=== PATIENT | female | born 1965 | race Caucasian/White ===

== ENCOUNTER → 2019-03-08 07:56 | Outpatient (CLI) | payer BC ==
[~2019-03-08 07:56] MED LIST: BAYER CHEWABLE81 MG PO; MOBIC7.5 MG PO; NEURONTIN 300300 MG PO; PLAVIX75 MG PO; PRAVACHOL20 MG PO; ULTRAM50 MG PO
--- NOTE | 2019-03-12 11:41 | ST ---
PATIENT:ERICH GUTIERREZ MEDICAL RECORD: [id number] SEX: F LOCATION:[facility] ORDER #: ADMISSION DATE: 03/08/19 AGE OF PATIENT: 53 REFERRING PHYSICIAN: INTERPRETING PHYSICIAN: TAM GARCIA MD DATE OF SERVICE: 03/08/2019 PROCEDURE: Nuclear stress test. INDICATION: Angina, shortness of breath. The patient was exercised on standard Geoff protocol for 7-1/2 minutes achieving 85% max target heart rate response with 33 mCi of sestamibi injected at peak stress, 11 mCi used previously for rest images. FINDINGS: Gated SPECT reveals preserved ejection fraction at 65% with decreased thickening and brightening throughout the inferior segments. SPECT imaging: Cardiolite was used as myocardial perfusion agent. There is fixed perfusion defect inferiorly and apically compatible with previous inferoapical myocardial infarction; however, there is reversibility anteriorly. This includes the basal, mid, apical and anterior segments. The degree of reversibility is mild. The amount of myocardium involved between the 2 defects is large. OVERALL IMPRESSION: This is an intermediate risk nuclear stress test, fixed perfusion defect inferiorly and apically, reversible ischemia anteriorly suggestive of multivessel coronary artery disease. TRANSINT:[id number] Voice Confirmation ID: [id number] DOCUMENT ID: [id number] TAM GARCIA MD at 1141 CC: BOY MORALES MD [id number] DICTATION DATE: 03/11/19 1154 DARK ROOM ATTENDANT: 03/12/19 0031 DEP CLI 03/08/19 [facility] [address] [place] [address]
[2019-03-26 09:28] VITALS: BMI 26.2
== END | disposition home or self-care (01) ==
LOC: D.HCCARDIO 07:56
PROVIDERS: ATTEND Internal Medicine Interventional Cardiology
DX: R07.9 Chest pain, unspecified (principal)

== ENCOUNTER 2019-03-26 08:33 | Outpatient (CLI) | payer MEDICAID ==
[~2019-03-26] VITALS: Ht 172.7 cm; Wt 78.2 kg
--- NOTE | ~2019-03-26 | HEMODYNAMI ---
PATIENT:ERICH GUTIERREZ MEDICAL RECORD: [id number] : 61 LOCATION:[facility] ADMISSION DATE: 03/26/19 Generatedon:03/26/201910:46 Patient name: ERICH GUTIERREZ Patient #: [id number] SSN: [id number] : 1965 Date of study: 03/26/2019 Page: Of Hemodynamic Procedure Report Patient Data Patient Demographics Procedure consent was obtained First Name: ERICH Gender: Female Last Name: BRENDA : 1965 Patient #: [id number] Age: 53 year(s) Race: SSN: [id number] Additional ID: [id number] Contact details [address]: [address] [place] [address] State: [place] City: [place] Zip code: [address] Past Medical History Performed procedures and imaging results Date Procedure Procedure Results Comments 03/08/2019 Stress testing Positive->Intermediate with SPECT MPI risk Allergies: No known allergies Admission Admission Data Admission Date: 03/26/2019 Admission Time: 8:33 Arrival Date: 03/26/2019 Arrival Time: 0:00 Insurance Payor: Private health insurance [facility] #: [id number] Height (in.): 69 BSA: 1.97 (m2) Height (cm.): 175.26 BMI: 26.29 (kg/m2) Weight (lbs.): 178 Weight (kg.): 80.74 Lab Results Lab Result Date: 03/26/2019 Lab Result Time: 0:00 Biochemistry Name Units Result Min Max BUN mg/dl 12 --(-*--)-- 7 18 Creatinine mg/dl 0.7 --(*---)-- 0.6 1.3 eGFR ml/min 90 --(*---)-- 90 120 NONAFRICAN CBC Name Units Result Min Max Hematocrit % 41.9 -*(----)-- 42 54 Hemoglobin g/dl 13.7 --(*---)-- 13.5 17.5 Procedure Procedure Types Cath Procedure Diagnostic Procedure [facility] w/Coronaries Sedation Charges Moderate Sedation up to 15 minutes PCI Procedure Coronary Stent Coronary Stent Initial Procedure Description Procedure Date Procedure Date: 03/26/2019 Procedure Start Time: 10:24 Procedure End Time: 10:39 Procedure Staff Name Function Juan Jose Judge MD Performing Physician Geeta Cruz RT Monitor Kendy Robb RT Monitor Todd Escalante RN Nurse Consuelo Liang RT Scrub Josh Rhodes RT Scrub Procedure Data Cath Procedure Fluoroscopy Diagnostic fluoroscopy Total fluoroscopy Time: 3.4 time: 3.4 min min Diagnostic fluoroscopy Total fluoroscopy dose: 551 dose: 551 mGy mGy Contrast Material Contrast Material Type Amount (ml) Isovue 300 106 Entry Location Entry Primary Successful Side Size Upsize Upsize Entry Closure Monroy ccessful Closure Location (Fr) 1 (Fr) 2 (Fr) Remarks Device Remarks Radial Right 6 Fr Mechanical artery Short Compression Estimated blood loss: 10 ml Diagnostic catheters Device Type Used For End Catheter Placement DIAGNOSTIC [place] 110cm 5 Procedure Fr catheter ([id number]) Procedure Complications No complications Procedure Medications Medication Administration Route Dosage 0.9% NaCl I.V. 100 ml/hr Oxygen etCO2 Nasal cannula 2 l/min Heparin Flush Bag added to field 2 bags (1000units/500ml NS) Lidocaine 2% added to field 20 Radial Cocktail added to field 1 syringe (Verapamil 2mg/Nitro 400mcg/Heparin 1500units) Versed I.V. 2 mg Fentanyl I.V. 100 mcg Radial Cocktail I.A. 1 syringe (Verapamil 2mg/Nitro 400mcg/Heparin 1500units) Heparin Bolus I.V. 4000 units Integrilin (Bolus I.V. 6.8 ml 2mg/ml) Integrilin (Bolus wasted 3.2 ml 2mg/ml) Fentanyl I.V. 50 mcg Plavix P.O. 600 mg Fentanyl I.V. 50 mcg Hemodynamics Rest BSA: 1.97 (m2) HGB: 13.7 (g/dl) O2 Consumption: Estimated: 187.48 (ml/min) O2 Co nsumption indexed: Estimated:95.17 (ml/min/m) Heart Rate: 67 (bpm) Snapshots Pre Cath Intra NCS Post Cath Vital Signs Time Heart Resp SPO2 etCO2 NIBP Rhythm Pain Sedation Rate (ipm) (%) (mmHg) (mmHg) Status Level (bpm) 10:03:16 67 19 98 42 128/75(91) NSR 0 (11) 10(A) , No pain 10:07:28 64 19 97 41.2 122/75(95) NSR 0 (11) 10(A) , No pain 10:11:35 63 17 97 23.7 121/77(91) NSR 0 (11) 10(A) , No pain 10:15:45 62 16 96 36.6 122/73(91) NSR 0 (11) 10(A) , No pain 10:19:55 68 18 94 38.9 114/67(92) NSR 0 (11) 10(A) , No pain 10:24:01 64 15 94 50.4 106/73(86) NSR 0 (11) 10(A) , No pain 10:28:07 78 15 92 35.9 109/66(84) NSR 0 (11) 10(A) , No pain 10:32:13 71 15 93 36.7 114/70(88) NSR 0 (11) 10(A) , No pain 10:36:18 73 18 94 36.6 133/73(90) NSR 6 (11) 10(A) , Intense Medications Time Medication Route Dose Verified Delivered Reason Not es Effectiveness by by 10:02:55 0.9% NaCl I.V. 100 Todd Todd Per physician ml/hr Boris Escalante RN RN 10:03:05 Oxygen etCO2 2 l/min Todd Todd for low 02 sats Nasal Lorigan Lorjunaid cannula RN RN 10:03:15 Heparin Flush added 2 bags Todd Todd used for Bag to Lorigan Lorigan procedure (1000units/500ml RN RN NS) 10:03:30 Lidocaine 2% added 20ml Todd Todd for local to vial Lorigan Lorigan anesthetic field DENISE RN 10:03:41 Radial Cocktail added 1 Todd Todd used for (Verapamil to syringe Lorigan Lorigan procedure 2mg/Nitro RN RN 400mcg/Heparin 1500units) 10:20:02 Versed I.V. 2 mg Todd Todd for sedation Boris Escalante RN RN 10:20:11 Fentanyl I.V. 100 mcg Todd Todd for sedation Boris Escalante RN RN 10:25:59 Radial Cocktail I.A. 1 Todd Juan Jose for (Verapamil syringe Boris Judge MD vasodilation 2mg/Nitro RN 400mcg/Heparin 1500units) 10:33:15 Heparin Bolus I.V. 4000 Todd Todd for units Boris Escalante anticoagulation RN RN 10:33:33 Integrilin I.V. 6.8 ml Todd Todd for (Bolus 2mg/ml) Boris Escalante antiplatelet RN RN therapy 10:33:44 Integrilin wasted 3.2 ml Todd Todd to sharp's (Bolus 2mg/ml) Boris Escalante RN RN 10:39:59 Fentanyl I.V. 50 mcg Todd Todd for chest pain Boris Escalante RN RN 10:42:18 Plavix P.O. 600 mg Todd Todd for Boris Escalante antiplatelet RN RN therapy 10:42:33 Fentanyl I.V. 50 mcg Todd Todd for chest pain Boris Escalante RN montessori teacher Log Time Note 9:38:36 Procedure Status Elective Heart Cath (OP). 9:38:41 Todd Escalante RN sent for patient. Start room use. 9:38:44 Time tracking: Regular hours (M-F 7:00 - 5:00) 9:38:49 Plan of Care:Hemodynamics will remain stable., Cardiac rhythm will remain stable., Comfort level will be maintained., Respiratory function will remain adequate., Patient/ family verbilizes understanding of procedure., Procedure tolerated without complication., Recovers from procedure without complications.. 9:40:16 Informed consent obtained and on chart 9:40:27 Patient Height : 69 inches 9:40:32 Patient Weight : 178 lbs 9:40:49 Insurance Payor : Private health insurance 9:40:52 Arrival Date: 03/26/2019 12:00:00 AM 9:50:58 Diagnostic Cath Status : Elective 9:53:00 Lab Result : Creatinine 0.7 mg/dl 9:53:00 Lab Result : BUN 12 mg/dl 9:53:00 Lab Result : eGFR NONAFRICAN 90 ml/min 9:53:00 Lab Result : Hematocrit 41.9 % 9:53:00 Lab Result : Hemoglobin 13.7 g/dl 9:53:05 Lab results completed and on chart. 9:53:14 Patient received from Pre/Post Procedure Room to CCL 1 Alert and oriented. Tansferred to table in Supine position. 9:53:17 Warm blankets applied, and chhaya hugger turned on for patient comfort. 9:53:17 Correct patient and procedure confirmed by team. 9:53:18 ECG and BP/O2 sat monitors applied to patient. 9:54:54 Stress Test: yes; abnormal inferior and apically 9:54:57 Risk of Mortality: .1 9:55:00 Risk of blood transfusion: .1 9:55:02 Risk of SREEDHAR: .1 9:55:05 Alarms reviewed by R. N. 9:55:05 Sharps counted by scrub and verified by R.N. 10:00:27 Pre procedure: right dorsailis pedis pulse Doppler 10:00:31 Modified Norbert's test Radial < 7 seconds 10:00:36 Patient pain scale 0/10 none. 10:00:54 IV patent on arrival in right forearm with 0.9% NaCl at O. 10:01:12 Right Radial & Right Groin area was prepped with chlora-prep and draped in sterile fashion 10:01:21 Vital chart was started 10:01:30 H&P Date Dictated: 03/26/2019 Within 30 days and on chart.. 10:01:32 Pre-procedure instructions explained to patient. 10:01:33 Pre-op teaching completed and patient verbalized understanding. 10:01:36 Family in waiting room. 10:01:38 Patient NPO since Midnight. 10:01:54 Patient allergic to No known allergies 10:01:57 Is the patient allergic to Iodine/contrast media? No. 10:02:00 Was the patient premedicated? N/A 10:02:02 Is patient on blood thinner?No 10:02:06 Patient diabetic? No. 10:02:11 If diabetic: On Metformin? N/A 10:02:17 Previous problem with sedation/anesthesia? No ? 10:02:19 Snore? Yes 10:02:21 Sleep apnea? No 10:02:22 Deviated septum? No 10:02:24 Opens mouth fully? Yes 10:02:25 Sticks out tongue? Yes 10:02:28 Airway obstruction? No ? 10:02:43 Dentures? No partial permanent 10:02:55 0.9% NaCl 100 ml/hr I.V. was administered by Todd Escalante RN; Per physician; Verbal order read back and verified. 10:03:05 Oxygen 2 l/min etCO2 Nasal cannula was administered by Todd Escalante RN; for low 02 sats; Verbal order read back and verified. 10:03:15 Heparin Flush Bag (1000units/500ml NS) 2 bags added to field was administered by Todd Escalante RN; used for procedure; Verbal order read back and verified. 10:03:30 Baseline sample Acquired. 10:03:30 Lidocaine 2% 20ml vial added to field was administered by Todd Escalante RN; for local anesthetic; Verbal order read back and verified. 10:03:41 Radial Cocktail (Verapamil 2mg/Nitro 400mcg/Heparin 1500units) 1 syringe added to field was administered by Todd Escalante RN; used for procedure; Verbal order read back and verified. 10:06:33 Rhythm: sinus rhythm 10:06:35 Full Disclosure recording started 10:06:41 Use device set Radial Dx or PCI 10:06:45 ACIST Syringe (03607) opened to sterile field. 10:06:45 Medline Cath Pack ([id number]) opened to sterile field. 10:06:48 Bag Decanter () opened to sterile field. 10:06:49 ACIST Hand Control (80386) opened to sterile field. 10:06:50 ACIST Manifold (95265) opened to sterile field. 10:06:51 Tegaderm 4 x 4 (1626W) opened to sterile field. 10:06:55 SHEATH 6FR RAIN (3004879) opened to sterile field. 10:06:56 EMERALD Guide Wire (454-822) opened to sterile field. 10:06:59 MBrace Wrist Support ([id number]) opened to sterile field. 10:19:26 --------ALL STOP TIME OUT------ 10:19:27 Final Timeout: patient, procedure, and site verified with staff and physician. All members of the team are in agreement. 10:19:30 Right Radial & Right Groin site verified by team. 10:19:36 Fire Safety Assessment: A--An alcohol-based skin anteseptic being used preoperatively., C--Open oxygen or nitrous oxide is being used., D--An ESU, laser, or fiber-optic light is being used. 10:19:41 Physical assessment completed. ASA score P 2 - A patient with mild systemic disease as per Juan Jose Judge MD. 10:19:46 1) 90+ Normal kidney functon but urine findings or structural abnormalities or genetic trait point to kidney disease. 10:19:49 Maximum allowable contrast dose (3.7 X eGFR X 0.75)250 ml. 10:19:55 Sedation plan: IV Moderate Sedation Medication:Versed, Fentanyl 10:20:02 Versed 2 mg I.V. was administered by Todd Escalante RN; for sedation; Verbal order read back and verified. 10:20:11 Fentanyl 100 mcg I.V. was administered by Todd Escalante RN; for sedation; Verbal order read back and verified. 10:24:38 Procedure started. 10:24:47 Local anesthetic to right radial artery with Lidocaine 2% by Juan Jose Judge MD.INITIAL ACCESS ONLY 10:25:42 A 6 Fr Short sheath was inserted into the Right Radial artery 10:25:46 Zero performed for pressure channel P1 10:25:59 Radial Cocktail (Verapamil 2mg/Nitro 400mcg/Heparin 1500units) 1 syringe I.A. was administered by Juan Jose Judge MD; for vasodilation; Verbal order read back and verified. 10:25:59 A DIAGNOSTIC [place] 110cm 5 Fr catheter (574998) was advanced over the wire and used for Procedure. 10:26:53 LV gram done using SMITH 10::57 Injector settings: Ml/sec: 5, Volume: 15, 10:27:07 EF : 60 % 10:27:24 LCA angiography performed. 10:28:16 INFLATOR Merit BasixCompak (CD7235) opened to sterile field. 10:28:27 CHOICE PT Extra Support 182cm wire ([id number]) opened to sterile field. 10:28:43 RCA angiography performed. 10:29:13 ACCDominant side:Right 10:29:19 Catheter exchanged over wire. 10:29:29 GUIDE 6FR XBLAD 3.5 catheter ([id number]) opened to sterile field. 10:29:40 Proceeding to intervention. 10:29:50 6 Fr xblad 3.5 guide catheter was inserted over the wire 10:30:23 Pre PCI Site: [place] mLAD has 85% stenosis. 10:32:38 choice es 182 wire advanced. 10:32:42 Wire advanced across lesion. 10:33:15 Heparin Bolus 4000 units I.V. was administered by Todd Escalante RN; for anticoagulation; Verbal order read back and verified. 10:33:24 Place stent Inflation Number: 1 A EMIR RX 3.5 x 12 stent ([id number]) was prepped and advanced across the Prox LAD . The stent was deployed at 15 FOREIGN for 0:00 (min:sec) . 10:33:33 Integrilin (Bolus 2mg/ml) 6.8 ml I.V. was administered by Todd Escalante RN; for antiplatelet therapy; Verbal order read back and verified. 10:33:44 Integrilin (Bolus 2mg/ml) 3.2 ml wasted was administered by Todd Escalante RN; to sharp's; Verbal order read back and verified. 10:33:50 Stent catheter was removed intact over wire. 10:35:03 Place stent Inflation Number: 2 A EMIR RX 4.0 x 08 stent ([id number]) was prepped and advanced across the Prox LAD . The stent was deployed at 13 FOREIGN for 0:00 (min:sec) . 10:35:32 Stent catheter was removed intact over wire. 10:35:36 Wire removed. 10:35:37 Guide catheter removed. 10:35:56 Procedure ended.(Physican Out) 10:36:06 ZEPHYR REGULAR TR BAND (796291) opened to sterile field. 10:36:17 Fluoroscopy time 03.40 minutes. 10:36:22 Fluoroscopy dose: 551 mGy 10:36:22 Flurop Dose total: 551 10:36:28 Dose Area Product 11020 mGy/cm. 10:36:40 Sheath removed intact; hemostasis achieved with Mechanical Compression to the Right Radial artery. 10:36:57 Contrast amount:Isovue 300 106ml. 10:37:02 Maximum allowable dose exceeded? No. 10:37:04 Sharps counted by scrub and verified by R.N. 10:37:08 Magnolia band inflated with 8cc of air. 10:37:12 Post Procedure Pulses reassessed and unchanged 10:37:20 Post procedure: right dorsailis pedis pulse Doppler. 10:37:26 Post-procedure physical assessment completed. ASA score P 2 - A patient with mild systemic disease as per Juan Jose Judge MD. 10:37:30 Post procedure rhythm: unchanged. 10:37:33 Estimated blood loss: 10 ml 10:37:35 Post procedure instruction explained to patient.Patient verbalizes understanding. 10:37:37 Patient needs reinforcement of post procedure teaching. 10:38:39 Procedure type changed to Cath procedure, Diagnostic procedure, LHC, [facility] w/Coronaries, Sedation Charges, Moderate Sedation up to 15 minutes, PCI procedure, Coronary Stent, Coronary Stent Initial 10:39:25 Procedure and supply charges have been captured, reviewed, submitted and are correct. 10:39:30 Procedure Complication : No complications 10:39:32 Vital chart was stopped 10:39:35 [facility] Findings: MVD- PCI performed (see procedure note) 10:39:38 Operative report dictated upon procedure completion. 10:39:40 See physician's report for complete and final results. 10:39:43 Report given to Pre/Post Procedure Room. 10:39:47 Patient transfered to Pre/Post Procedure Room with Stretcher. 10:39:50 Procedure ended. 10:39:50 Full Disclosure recording stopped 10:39:59 Fentanyl 50 mcg I.V. was administered by Todd Escalante RN; for chest pain; Verbal order read back and verified. 10:42:18 Plavix 600 mg P.O. was administered by Todd Escalante RN; for antiplatelet therapy; Verbal order read back and verified. 10:42:33 Fentanyl 50 mcg I.V. was administered by Todd Escalante RN; for chest pain; Verbal order read back and verified. 10:43:03 ACT drawn and resulted at 291 seconds. (normal therapeutic range 180-240 seconds). 10:43:12 ACC-PCI Only Patient was given prescriptions, or instructed by Juan Jose Judge MD to start/continue the following medications upon discharge: Plavix 10:45:04 End room use (Document Last) 10:45:20 End room use (Document Last) 10:45:41 End room use (Document Last) Intervention Summary Intervention Notes Time ActionType Lesion and Equipment Used Action# Pressure Duration Attributes 10:33:24 Place stent Prox LAD EMIR RX 3.5 x 1 15 00:00 12 stent ([id number]) 10:35:03 Place stent Prox LAD EMIR RX 4.0 x 2 13 00:00 08 stent ([id number]) Device Usage Item Name Manufacture Quantity Catalog Number Hospital Part Current M inimal Lot# / Charge Number Stock Stock Serial# Code ACIST Syringe Acist 1 71407 256377 280342 962804 2 0 (48591) Medical Systems Inc Medline Cath Medline 1 [id number] 483993 22903 997576 5 Pack ([id number]) Bag Decanter Microtek 1 2001S 317136 35444 358320 5 (2001S) Medical Inc. ACIST Hand Acist 1 50911 665618 550636 849171 5 Control Medical (82067) Systems Inc ACIST Manifold Acist 1 87164 606000 964496 421806 5 (89754) Medical Systems Inc Tegaderm 4 x 4 3M 1 1626W 442008 183383 214094 5 (1626W) SHEATH 6FR Cardinal 1 6927731 337538 5882608 841168 5 RAIN (4999988) [facility] EMERALD Guide Cardinal 1 502-455 432464 989596 608782 5 Wire (502-455) [facility] MBrace Wrist Advanced 1 140-0250-00 167776 67076 055478 5 Support Vascular ([id number]) Dynamics DIAGNOSTIC Terumo 1 40-5463 913851 479622 047931 5 [place] 110cm 5 Fr catheter (153253) INFLATOR Merit Merit 1 UT5710 142548 708447 732136 1 5 [facility]ABl[facility] HospitalOnline[facility] (SB7130) CHOICE PT [place] 1 [id number] 518331 292083 601557 5 Extra Support Scientific 182cm wire ([id number]) GUIDE 6FR Cardinal 1 [id number] 797501 319579 413752 1 0 XBLAD 3.5 Health catheter (45385767) EMIR RX 3.5 x Medtronic 1 [id number] 297150 9298861 069045 5 [id number] 12 stent ([id number]) EMIR RX 4.0 x Medtronic 1 [id number] 520556 8636185 174890 5 [id number] 08 stent ([id number]) ZEPHYR REGULAR Cardinal 1 195487 874552 1853571 883923 5 [facility] (797968) Signature Audit [place] Stage Time Signature Unsigned Intra-Procedure 03/26/2019 Kendy Robb 10:45:20 AM RT(R) Intra-Procedure 03/26/2019 Todd 10:45:41 AM Boris DENISE Intra-Procedure 03/26/2019 Juan Jose Judge 10:46:02 AM [facility] [address] [place] [id number]
[2019-03-26] MEDS ORDERED: ULTRAM50 MG PO (08:57)
[2019-03-26] MEDS ORDERED: NEURONTIN 300300 MG PO (08:58)
[2019-03-26] MEDS ORDERED: MOBIC7.5 MG PO (08:58)
[2019-03-26 09:28] VITALS: BP 131/70; Ht 172.7 cm; Wt 78.2 kg
[2019-03-26 09:28] LABS: BASOPHILS 0.1 % (0-2); EOSINOPHILS 1.4 % (0-7); HEMATOCRIT 41.9 % (36.0-48.0); HEMOGLOBIN 13.7 g/dL (12-16); IMMATURE GRANULOCYTES 0.1 % (0-5); LYMPHOCYTES 35.5 % (15-50); MCH 30.4 pg (26.0-34.0); MCHC 32.7 g/dL (31.0-37.0); MCV 93.1 fL (80.0-100.0); MEAN PLATELET VOLUME 9.4 fL (7.4-10.4); NEUTROPHILS 59.9 % (40-80); PLATELET COUNT 338 10x3/uL (130-400); RDW 13.7 % (11.5-14.5); WBC 6.9 10x3/uL (4.8-10.8)
[2019-03-26 09:47] LABS: ALT (SGPT) 25 U/L (10-68); CALC OSMOLALITY 285 mosm/kg (275-300); CALCIUM 8.8 mg/dL (8.5-10.1); CARBON DIOXIDE 30.5 mmol/L (21.0-32.0); CHLORIDE - SERUM 104 mmol/L (98-107); CHOL - HDL RATIO 5.9 ratio (2.3-4.1); CHOLESTEROL, TOTAL 287 mg/dL (0-200); CREATININE - SERUM 0.7 mg/dL (0.6-1.3); GLUCOSE 154 mg/dL (74-106); HDL CHOLESTEROL 49 mg/dL (32-96); POTASSIUM - SERUM 3.8 mmol/L (3.5-5.1); SODIUM 142 mmol/L (136-145); TRIGLYCERIDE 405 mg/dL (30-200); UREA NITROGEN 12 mg/dL (7-18); eGFR NON AFRICAN AMERICAN > 90 mL/min (90-120)
--- NOTE | 2019-03-26 10:52 | NUR ---
REC TO CL03 VIA STRETCHER. POST CATH MONITORING INITIATED. PT SUPINE, R WRIST Z BAND IN PLACE, NO BLEEDING OR HEMATOMA. SEE ASSESSMENT.
--- NOTE | 2019-03-26 11:05 | NUR ---
R WRIST SOFT, NO BLEEDING OR HEMATOMA. RESTING AND VSS. FINGERS PINK AND WARM.
[2019-03-26] MEDS ORDERED: PLAVIX75 MG PO (11:13)
[2019-03-26] MEDS ORDERED: PRAVACHOL20 MG PO (11:14)
[2019-03-26] MEDS ORDERED: BAYER CHEWABLE81 MG PO (11:15)
--- NOTE | 2019-03-26 11:20 | NUR ---
R WRIST SOFT, NO BLEEDING OR HEMATOMA. VSS, RESTING QUIETLY.
--- NOTE | 2019-03-26 11:36 | NUR ---
R WRIST SOFT, NO BLEEDING OR HEMATOMA. NO COMPLAINTS, FINGERS PINK AND WARM, VSS.
--- NOTE | 2019-03-26 11:50 | NUR ---
R WRIST SOFT, NO BLEEDING OR HEMATOMA. VSS. RESTING W EYES CLOSED.
--- NOTE | 2019-03-26 12:05 | NUR ---
R WRIST CDI, SOFT, NO BLEEDING OR HEMATOMA. FINGERS WARM AND PINK. VSS.
--- NOTE | 2019-03-26 12:20 | NUR ---
R WRIST SOFT, NO BLEEDING OR HEMATOMA, FINGERS WARM AND PINK. VSS.
--- NOTE | 2019-03-26 12:35 | NUR ---
R WRIST SOFT, NO BLEEDING OR HEMATOMA, VSS.
--- NOTE | 2019-03-26 12:49 | NUR ---
R WRIST SOFT, NO BLEEDING OR HEMATOMA. VSS.
--- NOTE | 2019-03-26 13:05 | NUR ---
R WRIST SOFT, NO BLEEDING/HEMATOMA. VSS.
--- NOTE | 2019-03-26 13:20 | NUR ---
VSS, R WRIST SOFT, NO BLEEDING OR HEMATOMA. VOICES NO COMPLAINTS.
--- NOTE | 2019-03-26 13:35 | NUR ---
NO COMPLAINTS. BP DOWN SL. IVF RATE INCREASED, BP RETAKEN. RETAKE WNL. IVF RATE SLOWED TO KVO. WILL BEGIN REMOVING AIR FROM ZBAND AT 1350
--- NOTE | 2019-03-26 13:50 | NUR ---
VSS, R WRIST SOFT, NO BLEEDING OR HEMATOMA NOTED. 2ML AIR REMOVED FROM ZBAND.
--- NOTE | 2019-03-26 14:05 | NUR ---
PT TAKING JELLO AND SPRITE WITHOUT COMPLAINT. VSS. R WRIST SOFT, NO BLEEDING OR HEMATOMA. 2ML AIR REMOVED FROM ZBAND. CONT MONITORING.
--- NOTE | 2019-03-26 14:20 | NUR ---
NOTED BLOOD ON PREV CLEAN 4X4 AT ZBAND EDGE. NO CURRENT BLEEDING NOTED. ADDED 1ML AIR TO ZBAND, WILL MONITOR. VSS. NO COMPLAINT EXCEPT ARM IS SORE.
--- NOTE | 2019-03-26 14:36 | NUR ---
R WRIST SOFT, NO FURTHER BLEEDING NOTED. 4 ML AIR REMOVED ZBAND. VSS. CONT MONITORING.
--- NOTE | 2019-03-26 14:50 | NUR ---
ZBAND AIR REMOVED COMPLETELY. BAND AND IMMOBILIZER KEPT IN PLACE WHILE PT UP TO BATHROOM. NO BLEEDING NOTED, NO HEMATOMA.
--- NOTE | 2019-03-26 15:03 | NUR ---
IV DC FROM [facility], TIP INTACT. PT DRESSING NOW.
--- NOTE | 2019-03-26 15:14 | NUR ---
ZBAND REMOVED, NO BLEEDING. SITE COVERED WITH 4X4 AND TEGADERM. DC INSTRUCTIONS REVIEWED, MEDS REVIEWED. HAS NEW PRESCRIPTIONS FOR PLAVIX AND PRAVACHOL. PT WALKED TO PRIVATE CAR WITH NURSE, BHARAT HOME WITH .
--- NOTE | 2019-03-27 10:41 | OP ---
PATIENT NAME: ERICH GUTIERREZ MEDICAL RECORD: [id number] :61 LOCATION:D.CAT ADMISSION DATE: SURGEON: TAM GARCIA MD DATE OF OPERATION: 03/26/2019 DATE OF SERVICE: 03/26/2019 PROCEDURES: 1. PTCA stent LAD. 2. Left heart catheterization. 3. Selective coronary angiography. 4. Left ventriculogram. INDICATION: Angina, coronary artery disease, abnormal nuclear stress test, anteroapical ischemia. PROCEDURE IN DETAIL: After informed consent was obtained and after a detailed description of the risks, benefits as well as alternative therapies, the patient elected to proceed with angiogram and angioplasty. The right radial area was prepped and draped in normal sterile fashion. Right radial artery was cannulated via modified Seldinger technique with placement of 6-[place] sheath. All catheters exchanged through this sheath. FINDINGS: Left ventriculogram was performed in standard 30-degree SMITH view, reveals good cardiac wall motion, ejection fraction estimated at 60%. SELECTIVE CORONARY ANGIOGRAPHY: 1. Left main is with no significant angiographic disease. 2. Left anterior descending has 85% stenosis at the ostium and 75% stenosis in the mid vessel. 3. Left circumflex has moderate irregularities, but no flow-limiting stenosis. 4. Right coronary has moderate irregularities, but no flow-limiting stenosis. PTCA STENT OF THE LAD: Stents used were 4.0 x 8 and 3.5 x 12, both [place] stents. Result was 0% residual stenosis. OVERALL IMPRESSION: Successful percutaneous transluminal coronary angioplasty stent of the left anterior descending going from 85% initial stenosis that correlates with perfusion defect on nuclear stress test to 0% residual stenosis. TRANSINT:[id number] Voice Confirmation ID: [id number] DOCUMENT ID: [id number] TAM GARCIA MD at 1041 CC: [id number] DICTATION DATE: 03/26/19 1040 VEGETABLE I FARMWORKER: 03/26/19 1048 DEP CLI 03/26/19 [place] [id number]
== END 2019-03-26 15:15 ==
LOC: D.CATH 08:33 → D.CLR 10:52 → D.CATH 15:15
PROVIDERS: ATTEND Internal Medicine Interventional Cardiology
DX: I25.110 Atherosclerotic heart disease of native coronary artery with unstable angina pectoris (principal); R94.30 Abnormal result of cardiovascular function study, unspecified; R07.9 Chest pain, unspecified
CPT/HCPCS: C9600; 93458